=== PATIENT | male | born 1965 | race Caucasian/White ===

== ENCOUNTER 2018-12-19 17:42 | Outpatient (CLI) | payer SELFPAY ==
--- NOTE | 2018-12-19 18:14 | RAD ---
XR Wrist 3 Lt View STANDARD History: [Fall. Pain.] Comparison: None. Findings: There is a moderate-sized wrist joint effusion. Small volar osteophyte is present along the lateral margin of the wrist. Ulnar styloid is elongated. No acute fracture or malalignment. Mild degenerative changes of the thumb carpometacarpal joint with calcification along the expected lo cation of the anterior oblique ligament. 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 Impression: Moderate-sized joint effusion without acute displaced fracture or malalignment. MRI may b e beneficial if clinically warranted.
== END 2018-12-19 17:43 | disposition home or self-care (01) ==
LOC: MADRAD 17:42
PROVIDERS: ATTEND Nurse Practitioner Family
DX: M25.532 Pain in left wrist (principal); M25.432 Effusion, left wrist